=== PATIENT | female | born 1960 | race American Indian/Alaskan Native ===

== ENCOUNTER → 2017-06-04 | Outpatient (CLI) | payer OTHER ==
[~2017-06-04] MED LIST: Bactrim Ds Tab1 EACH PO; CEPH500 PO; OMEP20ER PO; Percocet 5-3251 EACH PO; SULTRIDS PO; ZESTORETIC 20-121 EA PO
[2017-06-06 11:26] LABS: G. vaginalis (DNA Probe) Negative (NEGATIVE); T. vaginalis (DNA Probe) Negative (NEGATIVE)
[2017-06-06 11:27] LABS: Candida species (DNA Probe) Positive (NEGATIVE)
== END ==
LOC: LAB SHORT 13:23
PROVIDERS: Nurse Practitioner Family
DX: N89.8 Other specified noninflammatory disorders of vagina (principal)
CPT/HCPCS: 87480; 87510; 87660

== ENCOUNTER 2017-08-07 09:28 | Day surgery (SDC) | payer OTHER ==
[~2017-08-07] VITALS: Ht 162.6 cm; Wt 81.7 kg
[~2017-08-07 09:28] MED LIST changes: -ZESTORETIC 20-121 EA PO
[2017-08-07] MEDS ORDERED: ZESTORETIC 20-121 EA PO (10:06)
== END 2017-08-07 22:35 | disposition home or self-care (01) ==
LOC: ORSCMMR 09:28 → ORD 10:30 → ORSCMMR 22:35
PROVIDERS: Internal Medicine Gastroenterology
PROC: 0DBN8ZX Excision of Sigmoid Colon, Via Natural or Artificial Opening Endoscopic, Diagnostic (ICD-10-PCS; principal; 2017-08-07 10:30)
DX: Z12.11 Encounter for screening for malignant neoplasm of colon (principal); D12.5 Benign neoplasm of sigmoid colon; K21.9 Gastro-esophageal reflux disease without esophagitis; I10 Essential (primary) hypertension; E66.9 Obesity, unspecified; Z68.30 Body mass index [BMI] 30.0-30.9, adult; Z79.899 Other long term (current) drug therapy
CPT/HCPCS: 88305; J7120

== ENCOUNTER 2017-11-13 20:43 | Emergency (ER) | payer OTHER ==
[~2017-11-13] VITALS: Ht 162.6 cm; Wt 77.1 kg
[~2017-11-13 20:43] MED LIST changes: +ZESTORETIC 20-121 EA PO
[2017-11-13 21:31] LABS: BASOPHILS ABSOLUTE AUTO 0.01 K/mm3 (0.00-0.23); BASOPHILS PERCENT AUTO 0 % (0-2); EOSINOPHILS ABSOLUTE AUTO 0.06 K/mm3 (0.00-0.68); EOSINOPHILS PERCENT AUTO 1 % (0-6); Hematocrit 42.5 % (33.0-51.0); Hemoglobin 14.6 g/dL (11.5-16.0); IMMATURE GRAN ABSOLUTE AUTO 0.01 K/mm3 (0.00-0.10); IMMATURE GRAN PERCENT AUTO 0 % (0-1); LYMPHOCYTES ABSOLUTE AUTO 1.14 K/mm3 (0.84-5.20); LYMPHOCYTES PERCENT AUTO 19 % (21-46); MONOCYTES ABSOLUTE AUTO 0.45 K/mm3 (0.16-1.47); MONOCYTES PERCENT AUTO 8 % (4-13); Mean Corpuscular HGB 30.9 pg (26.0-34.0); Mean Corpuscular HGB Conc 34.4 g/dL (31.5-36.5); Mean Corpuscular Volume 90 fL (80-100); Mean Platelet Volume 9.6 fL (9.1-12.4); NEUTROPHILS ABSOLUTE AUTO 4.21 K/mm3 (1.96-9.15); NEUTROPHILS PERCENT AUTO 72 % (41-73); Platelet Count 321 K/mm3 (150-400); RDW Coefficient Variation 12.4 % (11.7-14.2); RDW Standard Deviation 41.2 fL (35.1-46.3); Red Blood Cell Count 4.72 M/mm3 (3.80-5.20); White Blood Cell Count 5.88 K/mm3 (4.00-11.30)
[2017-11-13 21:49] LABS: Albumin, Blood 3.9 g/dL (3.4-5.0); Albumin/Globulin Ratio 1.1 (0.8-1.8); Bilirubin, Total 0.3 mg/dL (0.1-1.0); Bun/Creatinine Ratio 15.4 (12.0-20.0); Calcium, Blood 9.4 mg/dL (8.5-10.1); Creatinine, Blood 1.04 mg/dL (0.40-1.00); Globulin, Blood 3.6 g/dL (2.2-4.0); Potassium, Blood 3.7 mmol/L (3.5-5.5); Total Protein, Blood 7.5 g/dL (6.4-8.2)
== END 2017-11-13 23:58 | disposition home or self-care (01) ==
LOC: ER 20:43
PROVIDERS: Emergency Medicine
DX: R55 Syncope and collapse (principal); R11.0 Nausea; Z88.0 Allergy status to penicillin; Z88.1 Allergy status to other antibiotic agents; Z79.899 Other long term (current) drug therapy
CPT/HCPCS: 36415; 80053; 81000; 85025; 93005; 93010; 99284-25

== ENCOUNTER → 2018-11-14 | Outpatient (CLI) | payer OTHER ==
[2018-11-15 11:05] LABS: Candida species (DNA Probe) Negative (NEGATIVE); G. vaginalis (DNA Probe) Negative (NEGATIVE); T. vaginalis (DNA Probe) Negative (NEGATIVE)
== END | disposition home or self-care (01) ==
LOC: LAB 15:40 → LAB SHORT 15:40
PROVIDERS: Family Medicine
DX: N89.8 Other specified noninflammatory disorders of vagina (principal); B37.3 Candidiasis of vulva and vagina
CPT/HCPCS: 87480; 87510; 87660

== ENCOUNTER → 2018-11-22 | Outpatient (CLI) | payer OTHER | END | disposition home or self-care (01) | LOC: LAB SHORT 14:30 → LAB 14:30 | DX: L29.0 Pruritus ani (principal) | CPT/HCPCS: 87177; 87209 ==

== ENCOUNTER → 2019-04-12 | Outpatient (CLI) | payer OTHER ==
[2019-04-12 10:22] LABS: Anion Gap 8 mmol/L (6-16); Blood Urea Nitrogen 8 mg/dL (8-24); Bun/Creatinine Ratio 9.1 (12.0-20.0); CO2, Blood 26 mmol/L (21-32); Calcium, Blood 9.3 mg/dL (8.5-10.1); Chloride, Blood 104 mmol/L (98-108); Creatinine, Blood 0.88 mg/dL (0.40-1.00); Glomerular Filtration Rate >60 (60-); Glucose, Blood 104 mg/dL (70-99); Potassium, Blood 3.8 mmol/L (3.5-5.5); Sodium, Blood 138 mmol/L (136-145)
== END | disposition home or self-care (01) ==
LOC: LAB SHORT 10:11 → LAB EV 10:11
PROVIDERS: Physician Assistant
DX: I10 Essential (primary) hypertension (principal)
CPT/HCPCS: 80048

== ENCOUNTER → 2019-12-26 | Outpatient (CLI) | payer OTHER | END | disposition home or self-care (01) | LOC: LAB SHORT 19:42 → LAB EV 19:42 | DX: N76.2 Acute vulvitis (principal); R30.9 Painful micturition, unspecified | CPT/HCPCS: 87070; 87077; 87086; 87147; 87186; 87205 ==

== ENCOUNTER → 2020-02-13 | Outpatient (CLI) | payer OTHER ==
[2020-02-14 14:53] LABS: Candida species (DNA Probe) Negative (NEGATIVE); G. vaginalis (DNA Probe) Positive (NEGATIVE); T. vaginalis (DNA Probe) Negative (NEGATIVE)
[2020-02-16 01:06] LABS: CHLAMYDIA TRACHOMATIS, NAA Negative (Negative); NEISSERIA GONORRHOEAE, NAA Negative (Negative)
== END | disposition home or self-care (01) ==
LOC: LAB EV 19:28 → LAB SHORT 19:28
PROVIDERS: Physician Assistant
DX: R10.2 Pelvic and perineal pain (principal)
CPT/HCPCS: 87480; 87491; 87510; 87529; 87591; 87660

== ENCOUNTER → 2022-07-01 | Outpatient (CLI) | payer OTHER ==
[2022-07-02 12:55] LABS: G. vaginalis (DNA Probe) Positive (NEGATIVE); T. vaginalis (DNA Probe) Negative (NEGATIVE)
[2022-07-02 12:57] LABS: Candida species (DNA Probe) Negative (NEGATIVE)
== END | disposition home or self-care (01) ==
LOC: LAB 16:36 → LAB SHORT 16:36
PROVIDERS: Chiropractor
DX: R10.2 Pelvic and perineal pain (principal)
CPT/HCPCS: 87480; 87510; 87660

== ENCOUNTER 2022-11-27 19:23 | Inpatient (IN) | payer OTHER ==
[~2022-11-27] VITALS: Ht 162.6 cm; Wt 63.5 kg
[2022-11-27 20:02] LABS: Hematocrit 43.2 % (33.0-51.0); Hemoglobin 14.6 g/dL (11.5-16.0); Mean Corpuscular HGB 30.2 pg (26.0-34.0); Mean Corpuscular HGB Conc 33.8 g/dL (31.5-36.5); Mean Corpuscular Volume 89 fL (80-100); Platelet Count 303 K/mm3 (150-400); RDW Coefficient Variation 12.4 % (11.7-14.2); Red Blood Cell Count 4.84 M/mm3 (3.80-5.20); White Blood Cell Count 18.73 K/mm3 (4.00-11.30)
[2022-11-27 20:17] LABS: Albumin/Globulin Ratio 1.2 (0.8-1.8); Bilirubin, Total 0.5 mg/dL (0.1-1.0); Bun/Creatinine Ratio 17.3 (12.0-20.0); Calcium, Blood 9.5 mg/dL (8.5-10.1); Creatinine, Blood 0.81 mg/dL (0.40-1.00); Globulin, Blood 3.3 g/dL (2.2-4.0); Potassium, Blood 4.3 mmol/L (3.5-5.5); Total Protein, Blood 7.3 g/dL (6.4-8.2)
[2022-11-27 20:25] LABS: BAND PERCENT MAN 13 % (0-8); BASOPHILS PERCENT MAN 0 % (0-2); EOSINOPHILS PERCENT MAN 0 % (0-6); LYMPHOCYTES ABSOLUTE MAN 0.18 K/mm3 (0.84-5.20); LYMPHOCYTES PERCENT MAN 1 % (21-46); MONOCYTES ABSOLUTE MAN 0.56 K/mm3 (0.16-1.47); MONOCYTES PERCENT MAN 3 % (4-13); NEUTROPHILS ABSOLUTE MAN 17.98 K/mm3 (1.96-9.15); SEG NEUTROPHILS PERCENT MAN 83 % (41-73); TOTAL CELLS COUNTED 100
[2022-11-27 23:35] VITALS: BP 139/57
--- NOTE | 2022-11-28 04:59 | NUR ---
PT IS A&O4, INDEPENDENT IN THE ROOM, RA, PT HAD A TEMP UPON ARRIVAL TO THE FLOOR, PROVIDER NOTIFIED PRN TYLENOL ORDERED AND GIVEN PER MAR, VSS, FIRE SAFETY EDUCATION PROVIDED, CONTINUE POC
[2022-11-28 06:22] LABS: Albumin, Blood 3.1 g/dL (3.4-5.0); Bilirubin, Total 0.6 mg/dL (0.1-1.0); Bun/Creatinine Ratio 14.8 (12.0-20.0); Calcium, Blood 8.9 mg/dL (8.5-10.1); Creatinine, Blood 0.81 mg/dL (0.40-1.00); Globulin, Blood 3.1 g/dL (2.2-4.0); Potassium, Blood 3.7 mmol/L (3.5-5.5); Total Protein, Blood 6.2 g/dL (6.4-8.2)
[2022-11-28 06:41] VITALS: BP 122/56
[2022-11-28 07:05] VITALS: BP 124/60
--- NOTE | 2022-11-28 08:15 | NUR ---
PT DENIES HAVING ANY IGNTIION SOURCES.
[2022-11-28 16:17] VITALS: BP 143/68
--- NOTE | 2022-11-28 17:38 | NUR ---
SHIFT SUMMARY: PT A/O X 4 IND IN ROOM PLEASANT AND COOPERATIVE. SWELLING TO R FOOT CONTINUES, REDNESS SLIGHTLY IMPROVED. PT DEVELOPED FEVER THIS AFTERNOON NO COMPLAINTS OF CHILLS. GAVE TYLENOL AND TEMPERATURE STILL ELEVATED AT 101.3 BUT TRENDING DOWN.
--- NOTE | 2022-11-28 18:31 | NUR ---
NO EVIDENCE OF USING IGNITION SOURCES TODAY.
[2022-11-28 19:18] VITALS: BP 133/66
--- NOTE | 2022-11-29 00:38 | NUR ---
WAKES EASILY, BACK TO SLEEP EASILY, MAKES NEEDS KNOWN, NO DISTRESS, RESPS EVEN AND NONLABORED, CALL LIGHT WITH IN REACH
[2022-11-29 05:01] VITALS: BP 148/70
[2022-11-29 05:17] LABS: Hematocrit 36.8 % (33.0-51.0); Hemoglobin 12.7 g/dL (11.5-16.0); Mean Corpuscular HGB 30.2 pg (26.0-34.0); Mean Corpuscular HGB Conc 34.5 g/dL (31.5-36.5); Mean Corpuscular Volume 88 fL (80-100); Mean Platelet Volume 9.5 fL (9.1-12.4); Platelet Count 234 K/mm3 (150-400); RDW Coefficient Variation 12.9 % (11.7-14.2); White Blood Cell Count 12.92 K/mm3 (4.00-11.30)
[2022-11-29 05:52] LABS: Albumin, Blood 2.7 g/dL (3.4-5.0); Albumin/Globulin Ratio 0.8 (0.8-1.8); Bilirubin, Total 0.5 mg/dL (0.1-1.0); Bun/Creatinine Ratio 12.3 (12.0-20.0); Calcium, Blood 8.7 mg/dL (8.5-10.1); Creatinine, Blood 0.81 mg/dL (0.40-1.00); Globulin, Blood 3.2 g/dL (2.2-4.0); Potassium, Blood 3.9 mmol/L (3.5-5.5); Total Protein, Blood 5.9 g/dL (6.4-8.2)
--- NOTE | 2022-11-29 06:28 | NUR ---
ALERT AND ORIENTED, TEMP THIS AM 103.1, MEDICATED WITH TYLENOL AND PLACED ICE PACKS ON PATIENT, TEMP ONE HOUR LATER 100.9, WBC DOWN TO 12, RIGHT FOOT SWELLING INCREASED, ELEVATED ON A PILLOW, MAKES NEEDS KNOWN, CALL LIGHT WITH IN REACH, WILL RELAY TO PM RN
[2022-11-29 09:01] VITALS: BP 135/66
--- NOTE | 2022-11-29 14:50 | NUR ---
SHIFT SUMMARY REDNESS TO RIGHT LOWER LEG APPEARS TO BE TRAVELLING UP LEG THROUGHOUT SHIFT, OUTLINE WAS DRAWN TO ACCURATELY MONITOR. US ON RIGHT LEG PERFOMED THIS SHIFT, WAITING FOR DOC TO READ. CONTINUES WITH ANCEF, TOLERATING WELL. WILL CONTINUE TO MONITOR.
[2022-11-29 16:14] VITALS: BP 146/71
[2022-11-29 19:44] VITALS: BP 134/80
[2022-11-29] MEDS ORDERED: TRAZ50 PO (23:12)
[2022-11-29] MEDS ORDERED: ZESTRIL40 M2 PO (23:13)
[2022-11-30 05:06] VITALS: BP 110/71
--- NOTE | 2022-11-30 05:31 | NUR ---
ALERT AND ORIENTED, MAKES NEEDS KNOWN, MEDICATED FOR PAIN WITH TORADOL, LAST TEMP 99.4, DENEIS PAIN PRESENTLY, LAB DRAWING BLOOD NOW, PATIENT HOPING TO GO HOME, RIGHT FOOT TRACING INTACT, REDNESS LESSENED AND SWELLING IN RIGHT FOOT, WILL RELAY TO AM RN, CALL LIGHT WITH IN REACH, INDEPENDENT IN ROOM
[2022-11-30 06:00] LABS: Hematocrit 36.9 % (33.0-51.0); Hemoglobin 12.3 g/dL (11.5-16.0); Mean Corpuscular HGB 29.8 pg (26.0-34.0); Mean Corpuscular HGB Conc 33.3 g/dL (31.5-36.5); Mean Corpuscular Volume 89 fL (80-100); Mean Platelet Volume 10.3 fL (9.1-12.4); Platelet Count 192 K/mm3 (150-400); RDW Coefficient Variation 12.9 % (11.7-14.2); RDW Standard Deviation 42.3 fL (35.1-46.3); Red Blood Cell Count 4.13 M/mm3 (3.80-5.20); White Blood Cell Count 6.41 K/mm3 (4.00-11.30)
[2022-11-30 06:35] LABS: Albumin, Blood 2.6 g/dL (3.4-5.0); Albumin/Globulin Ratio 0.7 (0.8-1.8); Bilirubin, Total 0.3 mg/dL (0.1-1.0); Bun/Creatinine Ratio 12.1 (12.0-20.0); Calcium, Blood 8.5 mg/dL (8.5-10.1); Creatinine, Blood 0.75 mg/dL (0.40-1.00); Globulin, Blood 3.8 g/dL (2.2-4.0); Potassium, Blood 3.8 mmol/L (3.5-5.5); Total Protein, Blood 6.4 g/dL (6.4-8.2)
[2022-11-30 07:19] VITALS: BP 139/81
[2022-11-30 17:19] VITALS: BP 128/79
--- NOTE | 2022-11-30 17:59 | NUR ---
SHIFT SUMMARY PT REMAINS A&O THIS SHIFT. VSS. RLE PAIN CONTROLLED WITH CURRENT REGIME. AMBULATING WITHOUT DIFFICULTY. RLE WITH IMPROVED EDEMA AND REDNESS. RESP EVEN NONLABORED ON RA.
[2022-11-30 19:49] VITALS: BP 144/85
[2022-12-01 03:49] VITALS: BP 129/61
--- NOTE | 2022-12-01 04:52 | NUR ---
SHIFT SUMMARY VSS. PT SLEPT ON AND OFF T/O THE NIGHT. SENSATION AND CIRCULATION REMAIN INTACT IN RLE, STRONG PULSE, +3 EDEMA. WARMTH AND REDDNESS NOTED. PT MEDICATED FOR PAIN WITH TYLENOL AND TORADOL. PT AMBULATING INDEPENDENTLY, TOLLERATING PO INTAKE W/O N/V, AND VOIDING W/O DIFFICULTY. NO ACUTE EVENTS, PLAN FOR IV ABX AND D/C HOME WHEN MEDICALLY CLEARED. NO IGNITION SOURCE NOTED
[2022-12-01 07:48] VITALS: BP 137/75
[2022-12-01] MEDS ORDERED: CEFD300 PO (11:30)
[2022-12-01] MEDS ORDERED: VISBIOME 112.51 EACH PO (11:31)
[2022-12-01] MEDS ORDERED: LAC-HYDRIN TOP (11:35)
--- NOTE | 2022-12-01 13:00 | NUR ---
SHIFT/DISCHARGE SUMMARY: Pt remains A&O this shift. VSS, pain managed with current regime. RLE with edema and redness. Encouraged to elevate. All discharge instructions reviewed with return verbal understanding. Pt to lobby via transport chair to meet cab.
== END 2022-12-01 12:55 | disposition home or self-care (01) | DRG 872 ==
LOC: ER 19:23 → MEDS 19:24 → ENPENDDIS 12-01 09:10 → MEDS 12-01 12:55
PROVIDERS: Family Medicine; Internal Medicine; Student in an Organized Health Care Education/Training Program; ADMIT Internal Medicine
DX: A41.9 Sepsis, unspecified organism (principal); L03.115 Cellulitis of right lower limb; I10 Essential (primary) hypertension; Z88.0 Allergy status to penicillin; Z88.1 Allergy status to other antibiotic agents; Z88.8 Allergy status to other drugs, medicaments and biological substances; Z79.899 Other long term (current) drug therapy; Z90.710 Acquired absence of both cervix and uterus; Z87.39 Personal history of other diseases of the musculoskeletal system and connective tissue
CPT/HCPCS: 36415; 80053; 83036; 83605; 85025; 85027; 87040; 93005; 93010; 93971; 96374; 96375; 99284-25; A9270; J0690; J1650; J1885; J7030; J7050